=== PATIENT | male | born 1985 | race Caucasian/White ===

== ENCOUNTER 2019-09-25 10:50 | Emergency (ER) | payer SELFPAY ==
[~2019-09-25] VITALS: Ht 149.9 cm; Wt 69.9 kg
[2019-09-25 10:53] VITALS: Ht 149.9 cm; Wt 69.9 kg
[2019-09-25 11:41] LABS: BASOPHIL % 0.5 % (0-2); PLATELET COUNT 304 x10^3mcL (130-400); RED CELL DISTRIBUTION WIDTH 13.4 % (11.5-14.5)
[2019-09-25 11:47] LABS: UA SPECIFIC GRAVITY 1.015 (1.005-1.035); microscopic required? YES; urine erythrocyte 1+ (NEGATIVE)
[2019-09-25 11:48] LABS: CALCIUM 8.8 mg/dL (8.5-10.1); CARBON DIOXIDE 26.5 mmol/L (21-32); CHLORIDE SERUM 105 mmol/L (98-107); CREATININE SERUM 0.7 mg/dL (0.7-1.3); GFR1 > 60 mL/min; GLUCOSE SERUM 111 mg/dL (74-106); POTASSIUM SERUM 3.8 mmol/L (3.5-5.1); SODIUM SERUM 140 mmol/L (136-145)
[2019-09-25 11:53] LABS: ALBUMIN 4.2 g/dL (3.4-5.0); ALKALINE PHOSPHATASE 82 U/L (46-116); ALT/SGPT 108 U/L (16-63); AST/SGOT 32 U/L (15-37); BILIRUBIN TOTAL 1.07 mg/dL (0.20-1.00); LIPASE 69 IU/L (73-393); TOTAL PROTEIN, SERUM 7.3 g/dL (6.4-8.2)
[2019-09-25 13:01] VITALS: BP 109/66
== END 2019-09-25 13:01 | disposition home or self-care (01) ==
LOC: ED 10:50
PROVIDERS: Emergency Medicine
DX: R10.12 Left upper quadrant pain (principal); K59.00 Constipation, unspecified; R31.29 Other microscopic hematuria
CPT/HCPCS: 36415